=== PATIENT | male | born 1950 | race Caucasian/White ===

== ENCOUNTER 2019-01-27 05:14 | Inpatient (IN) ==
[2019-01-18 10:04] LABS: HEMATOCRIT 47.2 % (42.0-52.0); HEMOGLOBIN 16.2 g/dL (14.0-18.0); MCH 32.2 PG (27-31); MCHC 34.3 g/dL (33-37); MCV 93.8 FL (81-99); MPV 10.1 FL (7.4-10.4); RBC 5.03 XMIL (4.7-6.1); RDW 12.8 % (11.5-14.5); WBC 7.24 X1000 (4.8-10.8)
[2019-01-18 10:42] LABS: AGAP 11; BUN 13 mg/dL (8-22); CHLORIDE 98 mmol/L (98-107); COSMO 279; CREATININE 0.9 mg/dL (0.7-1.2); ESTIMATED GFR > 60; GLUCOSE 191 mg/dL (70-104); POTASSIUM 4.7 mmol/L (3.5-5.1); SODIUM 137 mmol/L (136-145); TCO2 28 mmol/L (25-35)
[2019-01-27] MEDS ORDERED: LR 1,000 ML ONE ×2 (05:44→06:34)
[2019-01-27] MEDS ORDERED: PEPCID ONE (05:44)
[2019-01-27] MEDS ORDERED: REGLAN ONE (05:44)
[2019-01-27] MEDS ORDERED: MEFOXIN 1 GM/D5W 2 GM/100 ML IVPB ONE (05:44)
[2019-01-27] MEDS ORDERED: ENTEREG ONE (05:44)
[2019-01-27] MEDS ORDERED: LOPRESSOR ONE (05:50)
[2019-01-27] MEDS ORDERED: SENSORCAINE 0.5%-EPI 1:200,000 ONE (06:33)
[2019-01-27] MEDS ORDERED: FENTANYL ONE (06:35)
[2019-01-27] MEDS ORDERED: DIPRIVAN 1% ONE (06:35)
[2019-01-27] MEDS ORDERED: QUELICIN (DOSE) ONE (06:36)
[2019-01-27] MEDS ORDERED: STERILE WATER INJ. ONE (06:36)
[2019-01-27] MEDS ORDERED: NORCURON ONE (06:36)
[2019-01-27] MEDS ORDERED: ROBINUL ONE ×2 (06:36→07:18)
[2019-01-27] MEDS ORDERED: XYLOCAINE-MPF 2% ONE (06:36)
[2019-01-27] MEDS ORDERED: EXPAREL 1.3% ONE (06:40)
[2019-01-27] MEDS ORDERED: SODIUM CHLORIDE 0.9% 10 ML ONE (06:40)
[2019-01-27] MEDS ORDERED: MARCAINE 0.25% ONE (06:40)
[2019-01-27] MEDS ORDERED: ZOFRAN ONE (07:18)
[2019-01-27] MEDS ORDERED: NEOSTIGMINE ONE (07:18)
[2019-01-27] MEDS ORDERED: DECADRON ONE (07:18)
[2019-01-27 08:16] LABS: URINE SOURCE CATH
[2019-01-27 08:26] LABS: BILIRUBIN URINE NEGATIVE (NEGATIVE); BLOOD URINE NEGATIVE (NEGATIVE); COLOR YELLOW; GLUCOSE URINE NEGATIVE (NEGATIVE); KETONE URINE NEGATIVE (NEGATIVE); LEUKOCYTES URINE NEGATIVE (NEGATIVE); NITRITE URINE NEGATIVE (NEGATIVE); PH URINE 5.5; PROTEIN URINE NEGATIVE (NEGATIVE); SP GRAVITY URINE 1.007; TURBIDITY URINE CLEAR (CLEAR); UR EPITHELIAL CELLS <10 /HPF (<10); URINE BACTERIA NEGATIVE /HPF; URINE RBC <10 /HPF (<10); URINE WBC <10 /HPF (<10); UROBILINOGEN URINE NORMAL (NORMAL)
[2019-01-27] MEDS ORDERED: OFIRMEV 1000 MG/ISOTONIC SOLN 1,000 MG/100 ML BOTTLE ONE (09:42)
[2019-01-27] MEDS: DILAUDID ONE ×2 (10:50→10:58)
[2019-01-27] MEDS ORDERED: D5 1/2 NS + KCL 20 MEQ 1,000 ML ONE (10:53)
[2019-01-27] MEDS ORDERED: ZOFRAN IV PRN (11:30)
[2019-01-27] MEDS ORDERED: TYLENOL PO PRN (11:30)
[2019-01-27] MEDS: D5 1/2 NS + KCL 20 MEQ 1,000 ML IV SCH (11:47)
--- NOTE | 2019-01-27 12:42 | OPERATIVE NOTE ---
PROCEDURE DATE: 01/27/2019 PREOPERATIVE DIAGNOSIS: Recurrent diverticulitis. POSTOPERATIVE DIAGNOSIS: Recurrent diverticulitis. PROCEDURES: Laparoscopic robot-assisted sigmoid resection with stapled end-to-end anastomosis. SURGEON: Michael Fulton MD. SUPERVISOR TUMBLERS: Dr. Mendieta. Dr. Mendieta assisted with the entirety of the case. His presence was crucial to completion of the case. ANESTHESIA: General endotracheal. FINDINGS: Small area of disease, although the area was airtight under water. After the anastomosis, he did have 2 relatively thin donuts. COMPLICATIONS: None at time of dictation. ESTIMATED BLOOD LOSS: 50 mL. SPECIMEN: Sigmoid colon. BRIEF HISTORY: A 68-year-old gentleman with recurrent diverticulitis. [place] that he would benefit from a sigmoid resection. The risks, benefits, and alternatives were discussed. All questions answered. DESCRIPTION OF PROCEDURE: After informed consent was obtained, patient brought to the operative theatre, transferred to the operative table, placed in supine position. General endotracheal anesthesia was then performed without complication. A formal time-out was then performed confirming patient, date, procedure. All were in agreement. At that time, attention was given to the abdomen. We initially placed our trocars, the first 1 was supraumbilically using the Optiview technique. This was a 12 mm trocar. We then placed another 12 mm trocar half the distance between the umbilicus and the right anterior superior iliac spine. We then also placed an customer marketing assistant port superior to this. We then placed 2 ports on the left side of the abdomen. We then docked the robot. I turned my attention to the robot console. The patient had a significant intra-abdominal preperitoneal and mesenteric fat and large epiploic appendages. We were able to elevate the sigmoid colon. We did a medial to lateral approach, dissecting out, ligated the vessels with the vessel sealer until we were able to get around the sigmoid colon right as it crossed over the pelvic inlet. We were then able to mobilize it back up superiorly to get the diseased area completely freed up. We took it down to where the tenia were starting to splay, but probably on the very distal aspect of the sigmoid colon, close to the transition to the rectum. We used firefly and injected the IV dye, viewed it under the robot. The areas that we were going to use had perfusion. We then fired a staple across the distal end, made a small incision in the left lower quadrant, eviscerated the colon. We found the area that was well perfused on the proximal end. We used a pursestring device, placed a pursestring and then resected the colon. We did have to reinforce the proximal end; it had very thin ricci. We brought it back down into the abdomen, closed this defect, reinforced the peritoneum. After closing the defect in the left lower quadrant with running Maxon, we then performed a stapled anastomosis with a 28 EEA stapler. The donuts were thin, especially the proximal side, but we tested it under water and it did not have any air bubbles escape. Thus, seeing it was airtight. We tested it several times again, did not see any air bubbles. We then again closed the peritoneal defect with a left lower quadrant incision, de-docked the robot, closed the supraumbilical incision with a 0 Vicryl on a Brett- Michelle device, disconnected the insufflation and pneumoperitoneum was released. All skin incisions were closed with 4-0 Monocryl. The patient tolerated the procedure well. He will be admitted to the hospital. cc: Michael Fulton MD
[2019-01-27] MEDS: MEFOXIN 2 GM/D5W 2 GM/50 ML IVPB IV SCH ×2 (14:32→20:45)
[2019-01-27] MEDS: OFIRMEV 1000 MG/ISOTONIC SOLN 1,000 MG/100 ML BOTTLE IV SCH ×2 (16:58→23:55)
[2019-01-27] MEDS: PRAVACHOL PO SCH (20:44)
[2019-01-27] MEDS: PERIDEX MT SCH (20:44)
[2019-01-27] MEDS: LOPRESSOR PO SCH (20:45)
[2019-01-27] MEDS: HEPARIN SUBQ SCH (20:45)
[2019-01-28] MEDS: MEFOXIN 2 GM/D5W 2 GM/50 ML IVPB IV SCH ×2 (02:02→08:54)
[2019-01-28] MEDS: OFIRMEV 1000 MG/ISOTONIC SOLN 1,000 MG/100 ML BOTTLE IV SCH ×2 (04:39→11:54)
[2019-01-28] MEDS: HEPARIN SUBQ SCH ×4 (04:39→20:57)
[2019-01-28] MEDS: ASPIRIN PO SCH (08:54)
[2019-01-28] MEDS: GLUCOPHAGE XR PO SCH (08:54)
[2019-01-28] MEDS: LOPRESSOR PO SCH ×2 (08:54→20:57)
[2019-01-28] MEDS: ENTEREG PO SCH ×2 (08:54→20:57)
[2019-01-28] MEDS: PERIDEX MT SCH ×2 (08:54→20:57)
[2019-01-28] MEDS: DILAUDID ONE (09:03)
[2019-01-28] MEDS: HYZAAR 100/12.5 MG TAB PO SCH (09:03)
--- NOTE | 2019-01-28 09:49 | PROGRESS NOTE ---
DATE: 02/07/2019 Mr. Ramírez Monsivais is a 68-year-old white male who is now postop day 1 from a robotic assisted laparoscopic sigmoid colon resection. He has a Graves catheter tube in place. He is awake, seems to be comfortable. His abdomen is distended. He is on clear liquids. His heart rate 62, blood pressure 146/78, O2 saturation 95%. His trocar sites were dressed. He did have a loose bowel movement. PLAN: We will keep his Graves catheter tube in today. We will start increasing his activity. We will keep him on clear liquids and continue IV fluids. His IV antibiotics are scheduled to stop today. cc: MD Michael Tovar MD
[2019-01-28] MEDS: PATIENT'S OWN MED PO SCH (11:57)
[2019-01-28] MEDS: ULTRAM PO PRN ×2 (15:14→20:58)
[2019-01-28] MEDS: PRAVACHOL PO SCH (20:57)
[2019-01-29] MEDS: HEPARIN SUBQ SCH ×3 (04:11→20:53)
[2019-01-29] MEDS: ULTRAM PO PRN ×3 (04:11→20:53)
[2019-01-29] MEDS: D5 1/2 NS + KCL 20 MEQ 1,000 ML IV SCH ×2 (06:47→08:40)
[2019-01-29] MEDS: ASPIRIN PO SCH (08:40)
[2019-01-29] MEDS: ENTEREG PO SCH ×2 (08:40→20:54)
[2019-01-29] MEDS: LOPRESSOR PO SCH ×2 (08:40→20:53)
[2019-01-29] MEDS: GLUCOPHAGE XR PO SCH (08:40)
[2019-01-29] MEDS: PERIDEX MT SCH ×2 (08:40→20:53)
[2019-01-29] MEDS: HYZAAR 100/12.5 MG TAB PO SCH (08:40)
[2019-01-29] MEDS: PATIENT'S OWN MED PO SCH (08:41)
--- NOTE | 2019-01-29 09:17 | PROGRESS NOTE ---
DATE: 01/29/2019 Mr. Monsivais is postop day 2 from a robotic-assisted laparoscopic sigmoid colon resection. His abdomen remains distended but he has had some flatus. His diet has been advanced from clear to full liquids. His incisions are intact. His Graves catheter tube has been removed and he has voided. He has been good about moving around the room and even down the halls. His heart rate is 61, blood pressure 146/82, O2 saturation 95%. He is afebrile. He is on no antibiotics. PLAN: We will see how he tolerates full liquids and advance his diet as tolerated. cc: MD Michael Tovar MD
[2019-01-29] MEDS: PRAVACHOL PO SCH (20:54)
[2019-01-30] MEDS: HEPARIN SUBQ SCH ×2 (05:35→12:45)
--- NOTE | 2019-01-30 05:52 | GENERAL SURGERY PROGRESS NOTE ---
DATE: 01/30/2019 SUBJECTIVE: Patient seems to be doing well. He is tolerating his full liquids. He is passing gas. He is having bowel movements. His pain seems to be controlled. He has urinated without his Graves catheter. OBJECTIVE: Vital Signs: Patient is currently afebrile. His vital signs stable. General: No acute distress. Cardiovascular: Regular rate and rhythm. Lungs: Grossly clear. Abdomen: Soft. Minimally distended. Bowel sounds auscultated. Skin: Incisions with dressing intact. Appropriately tender. ASSESSMENT AND PLAN: A 68-year-old gentleman, currently postoperative day #3 from robotic assisted low anterior resection. Postoperative state at this time. Patient seems to be doing well. We will get him a GI soft diet. We will stop his IV fluids. If he seems to be doing well, hopefully, we can get him out later today if his pain seems to be controlled. Otherwise, we will plan on discharging in the next 24 hours. cc: Michael Fulton MD
[2019-01-30] MEDS: GLUCOPHAGE XR PO SCH (09:09)
[2019-01-30] MEDS: LOPRESSOR PO SCH (09:10)
[2019-01-30] MEDS: HYZAAR 100/12.5 MG TAB PO SCH (09:10)
[2019-01-30] MEDS: ASPIRIN PO SCH (09:10)
[2019-01-30] MEDS: PERIDEX MT SCH (09:10)
[2019-01-30] MEDS: ENTEREG PO SCH (09:10)
[2019-01-30] MEDS: PATIENT'S OWN MED PO SCH (09:54)
[2019-01-30 16:02] VITALS: BP 153/80
--- NOTE | 2019-02-01 05:29 | DISCHARGE SUMMARY ---
ADMISSION DATE: 01/27/2019 DISCHARGE DATE: 01/30/2019 ADMITTING DIAGNOSIS: Recurrent diverticulitis. DISCHARGE DIAGNOSIS: Status post laparoscopic robot assisted sigmoid resection. ADMITTING PHYSICIAN: Michael Fulton MD CONSULTATIONS: None. PROCEDURES: On 01/27/2019, patient underwent laparoscopic robot assisted sigmoid resection. BRIEF HISTORY AND COURSE OF STAY: A 68-year-old gentleman who was admitted and underwent a previously described procedure. His postoperative course was very uneventful. He was started on diet and advanced slowly. On postop day #3, he was up ambulating having bowel movements, and tolerating a regular diet. His pain was controlled. He has been afebrile. At that point, it was felt that he would be safe to be discharged home. All the incisions were healing up well. Discharge instructions were given. He was discharged home. DISPOSITION: Home. DISCHARGE CONDITION: Stable. FOLLOW-UP: Patient told to follow up with Dr. Fulton in 1 to 2 weeks. DISCHARGE MEDICATIONS: He was given prescription for pain medicine. cc: Michael Fulton MD
== END 2019-01-30 16:38 | disposition home or self-care (01) | DRG 330 ==
LOC: SURHOLD 05:14 → EDSTATUS 07:00 → 4N 11:26
PROVIDERS: ADMIT Surgery; ATTEND Surgery